=== PATIENT | male | born 1960 | race Caucasian/White ===

== ENCOUNTER 2023-05-16 16:13 | Emergency (ER) | payer BC ==
[2023-05-16 16:44] VITALS: BP 122/85; PULSE 69; RESP 18; TEMP 97.8; BMI 25.1
[2023-05-16] MEDS ORDERED: MECLIZINE HCL 25 MG TABLET (FP) PO ONE (17:10)
[2023-05-16] MEDS ORDERED: SODIUM CHLORIDE 1,000 ML IV ONE (17:11)
[2023-05-16 17:48] LABS: HEMATOCRIT 44.1 % (35.4-49); HEMOGLOBIN 15.3 G/dL (11.7-16.9); MCH 31.9 pg (25.7-33.7); MCHC 34.7 g/dl (32.0-35.9); MEAN CELL VOLUME 91.9 fl (80-96); MEAN PLT VOLUME 9.2 fl (7.5-11.1); RDW 14.6 % (11.9-15.9); WHITE BLOOD COUNT 6.5 10^3/uL (4.0-10.8)
[2023-05-16] MEDS ORDERED: MECLIZINE HCL 25 MG TABLET (FP) ONE (17:49)
[2023-05-16 18:19] LABS: PLATELET ESTIMATE ADEQUATE
[2023-05-16 18:34] LABS: POTASSIUM 3.9 mmol/L (3.5-5.1)
[2023-05-16 18:37] LABS: CALCIUM 9.1 mg/dL (8.5-10.1)
[2023-05-16 18:38] LABS: ALBUMIN 3.9 g/dl (3.4-5.0); BLOOD UREA NITROGEN 21.4 mg/dL (7-18); MAGNESIUM 2.1 mg/dL (1.8-2.4)
[2023-05-16 18:41] LABS: CREATININE 1.2 mg/dL (0.55-1.3)
[2023-05-16 18:42] LABS: BILIRUBIN,TOTAL 2.3 mg/dL (0.2-1)
[2023-05-16 18:43] LABS: TOT PROT 6.6 g/dl (6.4-8.2)
== END 2023-05-16 19:14 | disposition home or self-care (01) ==
LOC: FER 16:13
PROC: 3E0337Z Introduction of Electrolytic and Water Balance Substance into Peripheral Vein, Percutaneous Approach (ICD-10-PCS; principal; 2023-05-16)
DX: R42 Dizziness and giddiness (principal)
CPT/HCPCS: 36415; 80053; 82550; 83735; 84484; 85027; 93005; 99284-25

== ENCOUNTER 2023-06-01 20:33 | Emergency (ER) | payer BC ==
[2023-06-01] MEDS ORDERED: HEPATITIS B IMMUNE GLOBULIN 5 ML VIAL IM ONE (20:47)
[2023-06-01 20:52] VITALS: BP 156/89; PULSE 60; RESP 16; TEMP 98.4; BMI 23.9
== END 2023-06-01 22:56 | disposition home or self-care (01) ==
LOC: FER 20:33
PROC: 3E0234Z Introduction of Serum, Toxoid and Vaccine into Muscle, Percutaneous Approach (ICD-10-PCS; principal; 2023-06-01)
DX: Z29.8 Encounter for other specified prophylactic measures (principal)
CPT/HCPCS: 36415; 86705; 86707; 87340; 87350; 87517; 99284-25

== ENCOUNTER 2024-05-01 23:50 | Emergency (ER) | payer SELFPAY ==
[2024-05-01 23:57] VITALS: BP 125/87; PULSE 93; RESP 16; TEMP 97.9; BMI 24.7
== END 2024-05-02 00:11 | disposition home or self-care (01) ==
LOC: FER 23:50
DX: S50.12XA Contusion of left forearm, initial encounter (principal); X58.XXXA Exposure to other specified factors, initial encounter
CPT/HCPCS: 99283-25